=== PATIENT | female | born 1995 | race Caucasian/White ===

== ENCOUNTER 2017-09-08 13:23 | Emergency (ER) | payer OTHER ==
[2017-09-08] MEDS ORDERED: SODIUM CHLORIDE 0.9% 1,000 ML IV STA (14:49)
[2017-09-08] MEDS ORDERED: ONDANSETRON 4 MG/2 ML VIAL IVP STA (14:49)
--- NOTE | 2017-09-08 15:24 | ED ---
Nausea/Vomiting/Diarrhea HPI - General Chief complaint: Nausea/Vomiting/Diarrhea Stated complaint: vomiting/diarrhea Time Seen by Provider: 09/08/17 14:48 Source: patient, RN notes reviewed Mode of arrival: wheelchair Limitations: no limitations - History of Present Illness Initial comments: This a 22-year-old female presents emergency Department chief complaint of abdominal pain, diarrhea. Patient states that she's had abdominal cramping over the last day or so but having worsening today. She said for severe episodes of diarrhea which were all watery. She has diffuse abdominal cramping. Denies any rectal bleeding. Denies any dysuria hematuria. She states her last mental cycle 28 days ago she is scheduled started her period. Denies any concerns for . Patient reports no fever no chills no night sweats. 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 diff. She is concerned she may have contracted C. diff. Patient has been on no recent antibiotics no recent traveling. - Related Data Home Medications Medication Instructions Recorded Confirmed Biotin 5 mg PO DAILY 09/08/17 09/08/17 Previous Rx's Medication Instructions Recorded Ciprofloxacin HCl [Cipro] 500 mg PO Q12HR #10 tablet 09/08/17 Allergies Allergy/AdvReac Type Severity Reaction Status Date / Time No Known Allergies Allergy Verified 09/08/17 15:38 Review of Systems ROS Statement: Those systems with pertinent positive or pertinent negative responses have been documented in the HPI. ROS Other: All systems not noted in ROS Statement are negative. Past Medical History Past Medical History: No Reported History History of Any Multi-Drug Resistant Organisms: None Reported Past Surgical History: No Surgical Hx Reported Past Psychological History: No Psychological Hx Reported Smoking Status: Never smoker Past Alcohol Use History: None Reported Past Drug Use History: None Reported General Exam General appearance: alert, in no apparent distress Neck exam: Present: normal inspection. Absent: tenderness, meningismus, lymphadenopathy Respiratory exam: Present: normal lung sounds bilaterally. Absent: respiratory distress, wheezes, rales, rhonchi, stridor Cardiovascular Exam: Present: regular rate, normal rhythm, normal heart sounds. Absent: systolic murmur, diastolic murmur, rubs, gallop, clicks GI/Abdominal exam: Present: soft, tenderness (Mild diffuse), normal bowel sounds. Absent: distended, guarding, rebound, rigid Back exam: Absent: CVA tenderness (R), CVA tenderness (L) Course Vital Signs 09/08/17 09/08/17 13:27 17:03 Temperature 97.9 F 99.1 F Pulse Rate 68 87 Respiratory 18 16 Rate Blood Pressure 102/62 101/55 O2 Sat by Pulse 100 100 Oximetry Medical Decision Making - Medical Decision Making 22-year-old female presented for diarrhea abdominal discomfort. Patient's urinary tract infection. Patient did have some leukocytosis CT was performed she was ovarian cyst. Patient has no acute findings. Patient we given prescription for stool sampling and return for any worsening symptoms. - Lab Data Result diagrams: 09/08/17 15:24 09/08/17 15:24 Lab Results 09/08/17 09/08/17 09/08/17 Range/Units 15:24 15:24 15:37 WBC 19.8 H (3.8-10.6) k/uL RBC 4.47 (3.80-5.40) m/uL Hgb 15.2 (11.4-16.0) gm/dL Hct 43.7 (34.0-46.0) % MCV 97.7 (80.0-100.0) fL MCH 34.0 (25.0-35.0) pg MCHC 34.8 (31.0-37.0) g/dL RDW 12.7 (11.5-15.5) % Plt Count 208 (150-450) k/uL Neutrophils % 86 % Lymphocytes % 7 % Monocytes % 3 % Eosinophils % 1 % Basophils % 0 % Neutrophils # 17.1 H (1.3-7.7) k/uL Lymphocytes # 1.5 (1.0-4.8) k/uL Monocytes # 0.7 (0-1.0) k/uL Eosinophils # 0.2 (0-0.7) k/uL Basophils # 0.1 (0-0.2) k/uL Sodium 144 (137-145) mmol/L Potassium 4.4 (3.5-5.1) mmol/L Chloride 101 (98-107) mmol/L Carbon Dioxide 27 (22-30) mmol/L Anion Gap 16 mmol/L BUN 16 (7-17) mg/dL Creatinine 0.89 (0.52-1.04) mg/dL Est GFR (CKD-EPI)AfAm >90 (>60 ml/min/1.73 sqM) Est GFR (CKD-EPI)NonAf >90 (>60 ml/min/1.73 sqM) Glucose 78 (74-99) mg/dL Calcium 9.8 (8.4-10.2) mg/dL Total Bilirubin 0.9 (0.2-1.3) mg/dL AST 38 H (14-36) U/L ALT 59 H (9-52) U/L Alkaline Phosphatase 102 (38-126) U/L Total Protein 7.3 (6.3-8.2) g/dL Albumin 4.6 (3.5-5.0) g/dL Amylase 57 (30-110) U/L Lipase 69 (23-300) U/L Urine Color Urine Appearance (Clear) Urine pH (5.0-8.0) Ur Specific [place] (1.001-1.035) Urine Protein (Negative) Urine Glucose (UA) (Negative) Urine Ketones (Negative) Urine Blood (Negative) Urine Nitrite (Negative) Urine Bilirubin (Negative) Urine Urobilinogen (<2.0) mg/dL Ur Leukocyte Esterase (Negative) Urine RBC (0-5) /hpf Urine WBC (0-5) /hpf Ur Squamous Epith Cells (0-4) /hpf Amorphous Sediment (None) /hpf Urine Mucus (None) /hpf Urine HCG, Qual Not Detected (Not Detectd) 09/08/17 Range/Units 15:37 WBC (3.8-10.6) k/uL RBC (3.80-5.40) m/uL Hgb (11.4-16.0) gm/dL Hct (34.0-46.0) % MCV (80.0-100.0) fL MCH (25.0-35.0) pg MCHC (31.0-37.0) g/dL RDW (11.5-15.5) % Plt Count (150-450) k/uL Neutrophils % % Lymphocytes % % Monocytes % % Eosinophils % % Basophils % % Neutrophils # (1.3-7.7) k/uL Lymphocytes # (1.0-4.8) k/uL Monocytes # (0-1.0) k/uL Eosinophils # (0-0.7) k/uL Basophils # (0-0.2) k/uL Sodium (137-145) mmol/L Potassium (3.5-5.1) mmol/L Chloride (98-107) mmol/L Carbon Dioxide (22-30) mmol/L Anion Gap mmol/L BUN (7-17) mg/dL Creatinine (0.52-1.04) mg/dL Est GFR (CKD-EPI)AfAm (>60 ml/min/1.73 sqM) Est GFR (CKD-EPI)NonAf (>60 ml/min/1.73 sqM) Glucose (74-99) mg/dL Calcium (8.4-10.2) mg/dL Total Bilirubin (0.2-1.3) mg/dL AST (14-36) U/L ALT (9-52) U/L Alkaline Phosphatase (38-126) U/L Total Protein (6.3-8.2) g/dL Albumin (3.5-5.0) g/dL Amylase (30-110) U/L Lipase (23-300) U/L Urine Color Yellow Urine Appearance Cloudy H (Clear) Urine pH 6.5 (5.0-8.0) Ur Specific [place] 1.029 (1.001-1.035) Urine Protein 1+ H (Negative) Urine Glucose (UA) Negative (Negative) Urine Ketones 2+ H (Negative) Urine Blood Negative (Negative) Urine Nitrite Negative (Negative) Urine Bilirubin Negative (Negative) Urine Urobilinogen 2.0 (<2.0) mg/dL Ur Leukocyte Esterase Moderate H (Negative) Urine RBC 2 (0-5) /hpf Urine WBC 48 H (0-5) /hpf Ur Squamous Epith Cells 19 H (0-4) /hpf Amorphous Sediment Rare H (None) /hpf Urine Mucus Moderate H (None) /hpf Urine HCG, Qual (Not Detectd) Disposition Clinical Impression: Diarrhea, UTI (urinary tract infection) Disposition: HOME SELF-CARE Condition: Stable Instructions: Acute Diarrhea (ED), Urinary Tract Infection in Women (ED) Additional Instructions: Please return to the Emergency Department if symptoms worsen or any other concerns. Prescriptions: Ciprofloxacin HCl [Cipro] 500 mg PO Q12HR #10 tablet Is patient prescribed a controlled substance at d/c from ED?: No Referrals: Joe Velazquez MD [STAFF PHYSICIAN] - 1-2 days
[2017-09-08 15:52] LABS: Basophils # (A) 0.1 k/uL (0-0.2); Basophils % (A) 0 %; Eosinophils # (A) 0.2 k/uL (0-0.7); Eosinophils % (A) 1 %; HCT 43.7 % (34.0-46.0); HGB 15.2 gm/dL (11.4-16.0); Lymphocytes # (A) 1.5 k/uL (1.0-4.8); Lymphocytes % (A) 7 %; MCHC 34.8 g/dL (31.0-37.0); MCV 97.7 fL (80.0-100.0); Mean Platelet Volume 7.2; Monocytes # (A) 0.7 k/uL (0-1.0); Monocytes % (A) 3 %; Neutrophils # (A) 17.1 k/uL (1.3-7.7); Neutrophils % (A) 86 %; Platelet Count 208 k/uL (150-450); RBC 4.47 m/uL (3.80-5.40); RDW 12.7 % (11.5-15.5); WBC 19.8 k/uL (3.8-10.6)
[2017-09-08] MEDS ORDERED: RX INFO: IV CONTRAST WAS GIVEN 1 EACH MISC MISCELLANE PRN (15:54)
[2017-09-08 16:02] LABS: Amorphous Sediment,Urine Rare /hpf; Appearance,Urine Cloudy (Clear); Bilirubin,Urine Negative (Negative); Blood,Urine Negative (Negative); Color,Urine Yellow; Glucose,Urine (UA) Negative (Negative); Ketones,Urine 2+ (Negative); Leukocyte Esterase,Urine Moderate (Negative); Mucus,Urine Moderate /hpf; Nitrite,Urine Negative (Negative); PH, Urine 6.5 (5.0-8.0); Protein,Urine 1+ (Negative); RBC,Urine 2 /hpf (0-5); Specific Gravity,Urine 1.029 (1.001-1.035); Squamous Epithelial Cell,Urine 19 /hpf (0-4); WBC,Urine 48 /hpf (0-5)
[2017-09-08 16:09] LABS: ALT 59 U/L (9-52); AST 38 U/L (14-36); Albumin 4.6 g/dL (3.5-5.0); Alkaline Phosphatase 102 U/L (38-126); Amylase 57 U/L (30-110); Anion Gap 16 mmol/L; Blood Urea Nitrogen 16 mg/dL (7-17); Calcium 9.8 mg/dL (8.4-10.2); Carbon Dioxide 27 mmol/L (22-30); Chloride 101 mmol/L (98-107); Glucose 78 mg/dL (74-99); Lipase 69 U/L (23-300); Potassium 4.4 mmol/L (3.5-5.1); Sodium 144 mmol/L (137-145); Total Bilirubin 0.9 mg/dL (0.2-1.3); Total Protein 7.3 g/dL (6.3-8.2)
--- NOTE | 2017-09-08 16:53 | CT ---
EXAMINATION TYPE: CT abdomen pelvis w con DATE OF EXAM: 09/08/2017 COMPARISON: NONE HISTORY: Nausea, vomiting and diarrhea. CT DLP: 274.7 mGycm CONTRAST: CT scan of the abdomen and pelvis is performed without Oral Contrast and with IV Contrast, patient in jected with 100 mL of Isovue M300. FINDINGS: LUNG BASES-: No visible nodule. No infiltrate. LIVER/GB: No calcified gallstones. No space occupying hepatic lesion. Biliary tree is of normal ca liber. PANCREAS: No inflammation. No distinct mass. SPLEEN: No splenic enlargement. No lesion seen. ADRENALS: No nodule. No thickening. KIDNEYS/BLADDER: No hydronephrosis. No nephrolithiasis. No distinct renal mass. Urinary bladder g rossly unremarkable. BOWEL: Normal appendix. Normal bowel caliber. No inflammation. GENITAL ORGANS: Left ovarian cyst noted on the right measuring 3.2 cm in greatest dimension on the l eft 2.1 cm. There is free fluid identified within the cul-de-sac measuring 3.5 x 2.8 cm. Uterus appea rs unremarkable. LYMPH NODES: No greater than 1cm abdominal or pelvic lymph nodes are appreciated. AORTA: No significant abnormality. OSSEOUS STRUCTURES: No significant abnormality is seen. OTHER: No significant additional abnormality is seen. IMPRESSION: 1. Left ovarian cyst with 3 fluid within the cul-de-sac. Otherwise unremarkable study.
[2017-09-08 18:09] VITALS: BP 96/53; PULSE 91; RESP 18; TEMP 98.2
== END 2017-09-08 18:10 | disposition home or self-care (01) ==
LOC: EC 13:23
DX: N39.0 Urinary tract infection, site not specified (principal); R19.7 Diarrhea, unspecified; N83.202 Unspecified ovarian cyst, left side
CPT/HCPCS: 36415; 80053; 82150; 83690; 85025; 81001; 81025; 74177; 99284; 96374; 96361; J2405; Q9967

== ENCOUNTER 2019-02-10 12:21 | Emergency (ER) | payer OTHER ==
[2019-02-10 12:56] VITALS: BP 104/49; PULSE 78; RESP 16; TEMP 98.1
--- NOTE | 2019-02-10 13:25 | ED ---
Recheck HPI - General Chief Complaint: Recheck/Abnormal Lab/Rx Stated Complaint: IHS-stool in open wound Time Seen by Provider: 02/10/19 12:58 Source: patient, RN notes reviewed Mode of arrival: ambulatory Limitations: no limitations - History of Present Illness Initial Comments: 24-year-old female presents emergency dept for bodily fluid exposure. Patient states that she works at [employer] what is helping a patient in which she ended up getting some stool on her forearm, wrist region. She states she has a small healing wound. Patient was sent for evaluation for HIV and hepatitis testing. There is no history of the patient or the source. - Related Data Home Medications Medication Instructions Recorded Confirmed Biotin 5 mg PO DAILY 09/08/17 09/08/17 Previous Rx's Medication Instructions Recorded Ciprofloxacin HCl [Cipro] 500 mg PO Q12HR #10 tablet 09/08/17 Allergies Allergy/AdvReac Type Severity Reaction Status Date / Time No Known Allergies Allergy Verified 02/10/19 12:52 Review of Systems ROS Statement: Those systems with pertinent positive or pertinent negative responses have been documented in the HPI. ROS Other: All systems not noted in ROS Statement are negative. Past Medical History Past Medical History: No Reported History History of Any Multi-Drug Resistant Organisms: None Reported Past Surgical History: No Surgical Hx Reported Past Psychological History: No Psychological Hx Reported Smoking Status: Never smoker Past Alcohol Use History: None Reported Past Drug Use History: None Reported General Exam Limitations: no limitations General appearance: alert, in no apparent distress Head exam: Present: atraumatic, normocephalic, normal inspection Eye exam: Present: normal appearance, PERRL, EOMI. Absent: scleral icterus, conjunctival injection, periorbital swelling Respiratory exam: Present: normal lung sounds bilaterally. Absent: respiratory distress, wheezes, rales, rhonchi, stridor Cardiovascular Exam: Present: regular rate, normal rhythm, normal heart sounds. Absent: systolic murmur, diastolic murmur, rubs, gallop, clicks Course Vital Signs 02/10/19 12:52 Temperature 98.1 F Pulse Rate 78 Respiratory 16 Rate Blood Pressure 104/49 O2 Sat by Pulse 97 Oximetry Medical Decision Making - Medical Decision Making Rapid HIV and hepatitis panel were drawn on the patient and source. We did discuss prophylaxis antivirals patient declined Disposition Clinical Impression: Hx of exposure to hazardous bodily fluids Disposition: HOME SELF-CARE Condition: Stable Instructions (If sedation given, give patient instructions): Body Substance Exposure (ED) Additional Instructions: Please return to the Emergency Department if symptoms worsen or any other concerns. Is patient prescribed a controlled substance at d/c from ED?: No Referrals: None,Stated [Primary Care Provider] - 1-2 days Time of Disposition: 13:19
[2019-02-11 00:22] LABS: Hepatitis B Surface AB- Quant 3.5 mIU/mL; Hepatitis B Surface Antibody Non-Reactive (Non-Reactive); Hepatitis B Surface Antigen Non-Reactive (Non-Reactive); Hepatitis C IgG Antibody Non-Reactive (Non-Reactive)
[2019-02-11 01:39] LABS: HIV 1 AB Non-Reactive (Non-Reactive); HIV 2 AB Non-Reactive (Non-Reactive); HIV AB P24 Non-Reactive (Non-Reactive); HIV P24 AG Non-Reactive (Non-Reactive)
== END 2019-02-10 13:49 | disposition home or self-care (01) ==
LOC: EC 12:21
DX: Z77.21 Contact with and (suspected) exposure to potentially hazardous body fluids (principal); S51.809A Unspecified open wound of unspecified forearm, initial encounter; X58.XXXA Exposure to other specified factors, initial encounter; Y99.0 Civilian activity done for income or pay
CPT/HCPCS: 36415; 86706; 86803; 87340; 87390; 99283

== ENCOUNTER 2020-07-03 12:06 | Observation (INO) | payer MEDICAID, OTHER ==
--- NOTE | 2020-07-03 12:15 | ED ---
Lower Extremity Injury HPI - General Source: patient, RN notes reviewed Mode of arrival: ambulatory Limitations: no limitations <Malik Redd - Last Filed: 07/03/20 12:13> <Grzegorz Osorio - Last Filed: 07/03/20 14:17> - General Chief Complaint: Extremity Injury, Lower Stated Complaint: cellulitis-sent by [facility] Time Seen by Provider: 07/03/20 12:09 - History of Present Illness Initial Comments: 5-year-old female presents emergency Department with chief complaint of left foot infection. Patient states that she stabbed herself with a pitchfork on Wednesday. She was able to remove it was seen at [facility]. Patient states that she was placed on Augmentin. She states that the pain is improving, there is mild redness that is improving. Patient states that she was seen at [facility] for additional days off work so she did not lose her job but states that she was referred to the emergency department. Patient also does add that she recently found out she was but has no abdominal complaints. Patient did receive 1 g of Rocephin at [facility] (Malik Redd) Dictation was produced using [employer] dictation software. please excuse any grammatical, word or spelling errors. This patient was cared for during a federal and state declared state of [facility] secondary to Covid 19 Chief Complaint: 25-year-old female presents with worsening leg infection. History of Present Illness: 25-year-old female she suffered a puncture wound to the left foot. Patient accidentally punctured her left foot with a pitchfork. She states she was trying to stab the ground and instead stepped barefoot. The pitchfork went through and through her left foot. She removed the pitchfork by herself and presented to the urgent care 4 days ago. She was placed on Augmentin and was given injections of ceftriaxone. Patient is allegedly 3 weeks . She went to the urgent care again and was told to come to the emergency department for concerns of worsening cellulitis. She reports that the pain is increasing. She denies any constitutional symptoms. The ROS documented in this emergency department record has been reviewed and confirmed by me. Those systems with pertinent positive or negative responses have been documented in the HPI. All other systems are other negative and/or noncontributory. PHYSICAL EXAM: General Impression: Alert and oriented x3, not in acute distress HEENT: Normocephalic atraumatic, extra-ocular movements intact, pupils equal and reactive to light bilaterally, mucous membranes moist. Cardiovascular: Heart regular rate and rhythm Chest: Able to complete full sentences, no retractions, no tachypnea Abdomen: abdomen soft, non-tender, non-distended, no organomegaly Musculoskeletal: Pulses present and equal in all extremities, no peripheral edema Motor: no focal deficits noted Neurological: CN II-XII grossly intact, no focal motor or sensory deficits noted Skin: Intact with no visualized rashes Psych: Normal affect and mood Left foot: 1 cm puncture wound to the top of the mid foot and another puncture wound measuring 1 cm to the bottom of the foot ED course: 25-year-old female with who suffered a puncture wound to the left foot 4 days ago presents to the emergency department with worsening erythema and pain to the left foot. She is allegedly 3 weeks . Vital signs upon arrival are within acceptable limits. X-ray shows no acute processes. There is some concern that patient is suffering from pseudomonal wound infection given that she failed outpatient treatment and suffer puncture wound to the foot while wearing a shoe. Case is discussed with infectious disease who requests the patient be started on cefepime. There are no good oral options. Patient is agreeable with inpatient admission. Patient will be admitted to [facility]. Case discussed with Dr. Jalloh. Infectious disease will be on consult. (Grzegorz Osorio) - Related Data Home Medications Medication Instructions Recorded Confirmed Biotin 5 mg PO DAILY 09/08/17 09/08/17 Previous Rx's Medication Instructions Recorded Ciprofloxacin HCl [Cipro] 500 mg PO Q12HR #10 tablet 09/08/17 Ibuprofen [Motrin] 600 mg PO Q8HR PRN #20 tab 12/22/19 predniSONE 50 mg PO DAILY #5 tab 12/22/19 Allergies Allergy/AdvReac Type Severity Reaction Status Date / Time No Known Allergies Allergy Verified 07/03/20 12:13 Review of Systems ROS Other: All systems not noted in ROS Statement are negative. <Malik Redd - Last Filed: 07/03/20 12:13> ROS Other: All systems not noted in ROS Statement are negative. <Grzegorz Osorio - Last Filed: 07/03/20 14:17> ROS Statement: Those systems with pertinent positive or pertinent negative responses have been documented in the HPI. Past Medical History Past Medical History: No Reported History History of Any Multi-Drug Resistant Organisms: None Reported Past Surgical History: No Surgical Hx Reported Past Psychological History: No Psychological Hx Reported Smoking Status: Vaper Past Alcohol Use History: None Reported Past Drug Use History: None Reported <Malik Redd - Last Filed: 07/03/20 12:13> General Exam Limitations: no limitations <Malik Redd - Last Filed: 07/03/20 12:13> Course Vital Signs 07/03/20 12:08 Temperature 98.1 F Pulse Rate 98 Respiratory 20 Rate Blood Pressure 112/57 O2 Sat by Pulse 99 Oximetry Disposition <Malik Redd - Last Filed: 07/03/20 12:13> Decision Time: 14:17 <Grzegorz Osorio - Last Filed: 07/03/20 14:17> Clinical Impression: Cellulitis Disposition: ADMITTED IP TO THIS HOSP Condition: Fair Referrals: None,Stated [Primary Care Provider] - 1-2 days
[2020-07-03] MEDS ORDERED: CEFEPIME 2 GM in SODIUM CHLORIDE 0.9% 100 ML IVPB STA (14:03)
[2020-07-03] MEDS ORDERED: NALOXONE 0.4 MG/ML 1 ML VIAL IV PRN (14:14)
[2020-07-03] MEDS ORDERED: ACETAMINOPHEN TAB 325 MG TAB PO PRN (14:14)
[2020-07-03] MEDS ORDERED: SODIUM CHLORIDE 0.9% 1,000 ML IV SCH (14:15)
[2020-07-03] MEDS ORDERED: PRENATAL VIT-IRON-FOLIC ACID 1 EACH CAP PO STA (14:16)
--- NOTE | 2020-07-03 14:42 | XR ---
EXAMINATION TYPE: XR foot complete LT DATE OF EXAM: 07/03/2020 COMPARISON: None HISTORY: Puncture wound to the foot TECHNIQUE: 3 view left foot FINDINGS: No acute fractures or dislocations are evident. No radiopaque foreign bodies are evident. S oft tissues appear normal. Follow up exams can be performed 7-10 days from acute trauma for continued pain. IMPRESSION: 1. Normal three-view left foot
[2020-07-03 14:51] LABS: Basophils % (A) 0 %; Eosinophils # (A) 0.5 k/uL (0-0.7); Eosinophils % (A) 6 %; HCT 37.5 % (34.0-46.0); HGB 13.1 gm/dL (11.4-16.0); Lymphocytes # (A) 2.3 k/uL (1.0-4.8); Lymphocytes % (A) 26 %; MCH 35.1 pg (25.0-35.0); MCHC 34.8 g/dL (31.0-37.0); MCV 100.9 fL (80.0-100.0); Mean Platelet Volume 7.5; Monocytes # (A) 0.7 k/uL (0-1.0); Monocytes % (A) 8 %; Neutrophils # (A) 5.2 k/uL (1.3-7.7); Neutrophils % (A) 58 %; Platelet Count 176 k/uL (150-450); RBC 3.72 m/uL (3.80-5.40); RDW 11.7 % (11.5-15.5); WBC 8.9 k/uL (3.8-10.6)
[2020-07-03 15:02] LABS: African American GFR (CKD) >90 (>60 ml/min/1.73 sqM); Anion Gap 7 mmol/L; Blood Urea Nitrogen 19 mg/dL (7-17); Carbon Dioxide 25 mmol/L (22-30); Chloride 105 mmol/L (98-107); Glucose 83 mg/dL (74-99); Non-African American GFR(CKD) >90 (>60 ml/min/1.73 sqM); Potassium 4.3 mmol/L (3.5-5.1); Sodium 137 mmol/L (137-145)
[2020-07-03 15:03] VITALS: BP 107/59; PULSE 87; RESP 18; TEMP 98.2
--- NOTE | 2020-07-03 15:51 | ED ---
Medical Decision Making - Lab Data Result diagrams: 07/03/20 14:38 07/03/20 14:38 Disposition Clinical Impression: Cellulitis, Puncture wound of foot Narrative: Discussed with patient to follow up with infectious disease on outpatient basis. She understands that she should return to the emergency department especially worsening symptoms including fever, chills night sweats or worsening redness pain on that foot. Disposition: HOME SELF-CARE Condition: Fair Is patient prescribed a controlled substance at d/c from ED?: No Time of Disposition: 15:50
--- NOTE | 2020-07-03 16:07 | P.CONS ---
History of Present Illness - Reason for Consult Consult date: 07/03/20 Requesting physician: Grzegorz Osorio - Chief Complaint left foot swelling - History of Present Illness 25 year old woman with no significant medical history presented for left foot swelling. She was seen recently by PCP after accidental traumatic penetrating injury to left foot from pitchfork. She was started on augmentin and had two doses, and started to improve. However, she went to urgent care to obtain an extension of a work release, and the urgent care provider referred her to the ER due to concern for ongoing infection on oral abx. She was seen in co nsultation with ID, who recommended discharge with outpatient follow up consider her clinical improvement. ROS is negative for CP, fevers, chills, n/v/c/d, abd pain, dysuria, dyschezia, sweats, numbness/weakness of extremities. Review of Systems All Systems reviewed and pertinent positives and negatives noted in HPI, all other symptoms are negative Past Medical History Past Medical History: No Reported History History of Any Multi-Drug Resistant Organisms: None Reported Past Surgical History: No Surgical Hx Reported Past Psychological History: No Psychological Hx Reported Smoking Status: Vaper Past Alcohol Use History: None Reported Past Drug Use History: None Reported Medications and Allergies Home Medications Medication Instructions Recorded Confirmed Type Amoxic-Pot Clav 875-125Mg 1 tab PO BID 07/03/20 07/03/20 History [Augmentin 875-125] Allergies Allergy/AdvReac Type Severity Reaction Status Date / Time No Known Allergies Allergy Verified 07/03/20 14:21 Physical Exam Osteopathic Statement: *. No significant issues noted on an osteopathic structural exam other than those noted in the History and Physical/Consult. Vitals: Vital Signs Temp Pulse Resp BP Pulse Ox 07/03/20 15:00 98.2 F 87 18 107/59 99 07/03/20 12:08 98.1 F 98 20 112/57 99 Intake and Output 07/03/20 07/03/20 07/03/20 06:59 14:59 22:59 Other: Weight 58.967 kg Gen: awake, alert HEENT: normocephalic, atraumatic, good hearing acuity, moist mucous membranes Resp: good air exchange, breathing comfortably with no accessory muscle use CVS: good distal perfusion x 4, GI: soft, NTTP, ND : no SPT, no CVAT, her catheter not present MSK: non-pitting edema of left foot with puncture wound noted between second and third metatarsal with surrounding erythema, no clubbing Neuro: non-focal, moving all extremities Psych: cooperative, euthymic mood Results CBC & Chem 7: 07/03/20 14:38 07/03/20 14:38 Labs: Abnormal Lab Results - Last 24 Hours (Table) 07/03/20 07/03/20 Range/Units 14:38 14:38 RBC 3.72 L (3.80-5.40) m/uL MCV 100.9 H (80.0-100.0) fL MCH 35.1 H (25.0-35.0) pg BUN 19 H (7-17) mg/dL Assessment and Plan Assessment: Left foot cellulitis Puncture wound -Continue Augmentin on discharge -Recommend 1 more week of work release -Follow up with primary care physician -Follow up with infectious disease -Return to the emergency room should swelling, erythema increase or patient develops fevers, chills, sweats, or any other concerning signs or symptoms of infection; patient was counseled on the symptoms on discharge.
--- NOTE | 2020-07-03 17:21 | CONS ---
CONSULTATION DATE OF SERVICE: 07/03/2020 REASON FOR CONSULTATION: Left foot cellulitis. HISTORY OF PRESENT ILLNESS: The patient is a 25-year-old female, otherwise healthy, who did have an injury to her left foot when she was working in the yard with a pitchfork. It went through and through her left foot. The patient was feeling some at that point. The patient is able to remove the object from her left foot. There was mild bleeding. The patient went to [facility], where the patient was seen. She was started on oral Augmentin 875 mg twice a day. However, the patient did not take her medication as prescribed; has taken only 2 pills. 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 The patient was seen at Urgent Care and subsequently referred to [facility] for further evaluation and treatment. The patient denies having any fever or any chills. The patient denies having any chest pain, shortness of breath or cough. No abdominal pain. The patient did have some left foot swelling. The puncture wound has scabbed off. There is no drainage. The patient did have mild dull aching pain; however, she denies any worsening pain, swelling, redness or any drainage. The patient was been evaluated by the ER physician. The patient on presentation to the hospital did not have any fever. The patient did have a normal white count with no left shift. Creatinine was 0.68. Rutledge PCR was negative. The patient did have x-rays of the foot which did not show any abnormality; no acute fracture or dislocation; no foreign body. Soft tissue appeared normal, as per information provided to me by the ER physician. Initial impression was for admission to hospital for IV antibiotic therapy, failing outpatient. However, the patient has not taken enough antibiotics to consider failure of outpatient oral antibiotic therapy, and the patient is begging to go home. She does not want to be admitted. REVIEW OF SYSTEMS: Positive points have been mentioned in HPI. Rest of the systems are negative. PAST MEDICAL HISTORY: No major illnesses. PAST SURGICAL HISTORY: No surgeries. SOCIAL HISTORY: The patient did admit to vape smoking. No drinking or drug use. FAMILY HISTORY: No pertinent findings noticed. ALLERGIES: NO KNOWN DRUG ALLERGIES. MEDICATIONS: The patient is currently on Tylenol. She received a dose of cefepime 2 grams x1, Narcan, capsule and IV fluid. PHYSICAL EXAMINATION: Blood pressure 107/59 with a pulse of 87, temperature 98.2. She is 99% on room air. General description is a middle-aged female lying in bed in no distress. HEENT: Examination shows no pallor or scleral icterus. Oral mucous membrane is dry. NECK: Trachea is central. No thyromegaly. LUNGS: Unlabored breathing. Clear to auscultation anteriorly. HEART: S1, S2. Regular rate and rhythm. ABDOMEN: Soft. No tenderness. Left foot with minimal swelling. Slight redness. Tender to touch. No fluctuation or drainage was noted. Neurologically the patient is awake, alert, oriented x3. Mood and affect normal. LABS: Hemoglobin 13.1, white count 8.9. No left shift. BUN of 19, creatinine 0.68. X-ray did not show any acute abnormality. DIAGNOSTIC IMPRESSION AND PLAN: Patient with left foot cellulitis from a traumatic wound while she was working in the yard. She was able to remove the traumatic object. The patient was prescribed Augmentin. Unfortunately the patient did not take the medication as it was prescribed to her, and over the last 4 days she has taken only 2 doses. Patient currently with no fever; did not have elevated white count. X-ray did not show any abnormality. The patient is really insisting on going home. PLAN: 1. The patient has been advised to take her Augmentin 875 mg b.i.d. for another week. 2. Patient has been advised if any worsening of swelling or redness to let me know right away. Case was discussed with the ER physician. She is going to go home instead of getting admitted to hospital for IV antibiotic. MMODL / IJN: [id number] /
== END 2020-07-03 16:25 | disposition home or self-care (01) ==
LOC: EC 12:06 → 6PED 14:14
PROVIDERS: ADMIT Internal Medicine; ATTEND Internal Medicine
DX: L03.116 Cellulitis of left lower limb (principal); S91.332A Puncture wound without foreign body, left foot, initial encounter; T36.0X6A Underdosing of penicillins, initial encounter; T36.1X6A Underdosing of cephalosporins and other beta-lactam antibiotics, initial encounter; Z91.14 Patient's other noncompliance with medication regimen; Y92.096 Garden or yard of other non-institutional residence as the place of occurrence of the external cause; W27.1XXA Contact with garden tool, initial encounter; F17.290 Nicotine dependence, other tobacco product, uncomplicated; Z20.822 Contact with and (suspected) exposure to COVID-19
CPT/HCPCS: 36415; 80048; 83605; 85025; 87040; 87070; 87205; 87075; 87635; 73630; G0378; J0692; S0197; 96365; 99284

== ENCOUNTER → 2020-08-22 | Outpatient (CLI) | payer MEDICAID ==
[2020-08-22 19:00] LABS: Basophils # (A) 0.05 X 10*3/uL (0.00-0.10); Basophils % (A) 0.4 %; Eosinophils % (A) 2.9 %; HCT 38.8 % (37.2-46.3); HGB 13.3 g/dL (12.0-15.0); Lymphocytes # (A) 3.22 X 10*3/uL (0.90-5.00); Lymphocytes % (A) 23.3 %; MCH 34.3 pg (27.0-32.0); MCHC 34.3 g/dL (32.0-37.0); Mean Platelet Volume 10.6 fL (9.5-12.2); Monocytes # (A) 1.02 X 10*3/uL (0.20-1.00); Monocytes % (A) 7.4 %; Neutrophils # (A) 9.05 X 10*3/uL (1.80-7.70); Neutrophils % (A) 65.4 %; Platelet Count 212 X 10*3/uL (140-440); RBC 3.88 X 10*6/uL (4.10-5.20); RDW 12.8 % (11.5-14.5); WBC 13.82 X 10*3/uL (4.50-10.00)
[2020-08-22 20:27] LABS: HIV 2 AB Non-Reactive (Non-Reactive); HIV AB P24 Non-Reactive (Non-Reactive); HIV P24 AG Non-Reactive (Non-Reactive)
[2020-08-22 21:04] LABS: T4, Free (Free Thyroxine) 1.1 ng/dL (0.80-1.80)
[2020-08-23 16:05] LABS: Hepatitis B Surface Antigen Non-Reactive (Non-Reactive)
== END | disposition home or self-care (01) ==
LOC: LABWHC1 11:18
PROVIDERS: ATTEND Obstetrics & Gynecology Obstetrics
DX: Z34.81 Encounter for supervision of other normal pregnancy, first trimester (principal); Z3A.00 Weeks of gestation of pregnancy not specified
CPT/HCPCS: 36415; 84439; 84443; 85025; 86762; 86780; 86850; 86900; 86901; 87086; 87340; 87390

== ENCOUNTER → 2020-12-13 | Outpatient (CLI) | payer MEDICAID ==
[2020-12-13 18:50] LABS: HCT 30.1 % (37.2-46.3); HGB 9.8 g/dL (12.0-15.0); MCH 33.6 pg (27.0-32.0); MCHC 32.6 g/dL (32.0-37.0); MCV 103.1 fL (80.0-97.0); Mean Platelet Volume 10.7 fL (9.5-12.2); Platelet Count 166 X 10*3/uL (140-440); RBC 2.92 X 10*6/uL (4.10-5.20); RDW 11.9 % (11.5-14.5); WBC 8.27 X 10*3/uL (4.50-10.00)
== END | disposition home or self-care (01) ==
LOC: LABWHC1 10:39
PROVIDERS: ATTEND Obstetrics & Gynecology Obstetrics
DX: Z36.9 Encounter for antenatal screening, unspecified (principal); Z3A.00 Weeks of gestation of pregnancy not specified
CPT/HCPCS: 36415; 82950; 85027

== ENCOUNTER 2021-03-01 17:42 | Inpatient (IN) | payer OTHER ==
[2021-03-01] MEDS ORDERED: METHYLERGONOVINE 0.2 MG/ML 1 ML AMP IM PRN (18:36)
[2021-03-01] MEDS ORDERED: OXYTOCIN 10 UNIT/ML 1 ML VIAL IM PRN (18:36)
[2021-03-01] MEDS ORDERED: TERBUTALINE 1 MG/ML VIAL SQ PRN (18:36)
[2021-03-01] MEDS ORDERED: CARBOPROST TROMETHAMINE 250 MCG/ML 1 ML AMP IM PRN (18:36)
[2021-03-01] MEDS ORDERED: AMPICILLIN 2,000 MG in SODIUM CHLORIDE 0.9% 100 ML IVPB STA (18:36)
[2021-03-01] MEDS ORDERED: LIDOCAINE 0.5% (PF) 5 MG/ML (50 ML SDV) SQ PRN (18:36)
[2021-03-01] MEDS ORDERED: LACTATED RINGERS 1,000 ML IV SCH (18:45)
[2021-03-01 19:11] LABS: Basophils % (A) 0 %; Eosinophils # (A) 0.2 k/uL (0-0.7); Eosinophils % (A) 1 %; HCT 36.2 % (34.0-46.0); Lymphocytes # (A) 3.2 k/uL (1.0-4.8); Lymphocytes % (A) 27 %; MCHC 33.2 g/dL (31.0-37.0); MCV 99.5 fL (80.0-100.0); Macrocytosis Slight; Mean Platelet Volume 8.3; Monocytes # (A) 0.6 k/uL (0-1.0); Monocytes % (A) 5 %; Neutrophils # (A) 7.4 k/uL (1.3-7.7); Neutrophils % (A) 64 %; Platelet Count 176 k/uL (150-450); RBC 3.63 m/uL (3.80-5.40); RDW 14.3 % (11.5-15.5); WBC 11.7 k/uL (3.8-10.6)
[2021-03-01] MEDS ORDERED: SODIUM CHLORIDE 0.9% 100 ML BAG ONE (19:15)
[2021-03-01] MEDS ORDERED: ROPIVACAINE 5MG/ML 20ML VIAL ONE (19:15)
[2021-03-01] MEDS ORDERED: fentaNYL (PF) 50 MCG/ML 5 ML AMP ONE (19:15)
[2021-03-01] MEDS ORDERED: ROPIVACAINE 100 MG, fentaNYL (PF). 200 MCG in SODIUM CHLORIDE 0.9% 76 ML EPIDURAL ONE (19:29)
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
--- NOTE | 2021-03-01 21:37 | P.PROBDLV ---
Vaginal Delivery Note - . Vaginal Delivery Note: 26-year-old presents at 39 weeks and 5 days in active labor. Her cervix was 3 cm dilated, 70% effaced, and -2 station. She is brian every 3 minutes. At her water broke in triage at 1821. heart tones 135 with moderate variability and reactive. She got an epidural for pain control and started ampicillin for GBS prophylaxis. Her cervix was completely dilated at 2117. She pushed, delivered a viable female over intact perineum under epidural anesthesia at 2119. Head delivered OA, anterior shoulder delivered gentle downward guidance for by posterior shoulder and rest of body. Nose and mouth bulb suctioned, cord clamped and cut, placed on mother's abdomen. Apgars 9, 9, weight 7 lbs. 13 oz. Placenta delivered spontaneously, intact with three-vessel cord at 2122. Vagina, cervix, and perineum were inspected. Right labial laceration was repaired with 3-0 Vicryl. Estimated blood loss 200 mL. Mother and baby in stable condition.
[2021-03-01] MEDS ORDERED: diphenhydrAMINE 50 MG CAP PO PRN (21:38)
[2021-03-01] MEDS ORDERED: diphenhydrAMINE 50 MG/ML 1 ML VIAL IVP PRN ×2 (21:38)
[2021-03-01] MEDS ORDERED: SIMETHICONE 80 MG CHEWABLE PO PRN (21:38)
[2021-03-01] MEDS ORDERED: ZOLPIDEM 5 MG TAB PO PRN (21:38)
[2021-03-01] MEDS ORDERED: LANOLIN CREAM 5 GM TUBE TOPICAL PRN (21:38)
[2021-03-01] MEDS ORDERED: ACETAMINOPHEN TAB 325 MG TAB PO PRN (21:38)
[2021-03-01] MEDS ORDERED: HYDROCORTISONE 2.5% RECTAL CREAM 30 GM TUBE RECTAL PRN (21:38)
[2021-03-01] MEDS ORDERED: IBUPROFEN 600 MG TAB PO PRN (21:38)
[2021-03-01] MEDS ORDERED: diphenhydrAMINE 25 MG CAP PO PRN (21:38)
[2021-03-01] MEDS ORDERED: BENZOCAINE/MENTHOL SPRAY 1 GM/SPRAY AEROSOL TOPICAL PRN (21:38)
[2021-03-01] MEDS ORDERED: OXYTOCIN 30 UNITS/500 ML NS 30 UNIT in SALINE 1 500ML.BAG IV SCH (21:45)
[2021-03-01] MEDS ORDERED: AMPICILLIN 1,000 MG in SODIUM CHLORIDE 0.9% 50 ML IVPB SCH (22:45)
[2021-03-02 04:49] LABS: Basophils % (A) 0 %; Eosinophils # (A) 0.1 k/uL (0-0.7); Eosinophils % (A) 1 %; HCT 31.5 % (34.0-46.0); HGB 10.6 gm/dL (11.4-16.0); Lymphocytes # (A) 2.4 k/uL (1.0-4.8); Lymphocytes % (A) 18 %; MCH 33.5 pg (25.0-35.0); MCHC 33.5 g/dL (31.0-37.0); MCV 99.9 fL (80.0-100.0); Macrocytosis Slight; Mean Platelet Volume 8.6; Monocytes # (A) 0.8 k/uL (0-1.0); Monocytes % (A) 6 %; Neutrophils # (A) 10.2 k/uL (1.3-7.7); Neutrophils % (A) 74 %; Platelet Count 149 k/uL (150-450); RBC 3.16 m/uL (3.80-5.40); RDW 14.4 % (11.5-15.5); WBC 13.8 k/uL (3.8-10.6)
[2021-03-02] MEDS: SENNOSIDES-DOCUSATE SODIUM 1 EACH TAB PO SCH (09:45)
[2021-03-02] MEDS: SERTRALINE 50 MG TAB PO SCH (10:31)
--- NOTE | 2021-03-02 10:44 | P.PNOBGVD ---
Subjective - Subjective Principal diagnosis: Status post total vaginal delivery day #1 Interval history: Sincerely and examined. Denies nausea, vomiting, chest pain, shortness of breath or any calf pain. Patient reports: Reports appetite normal, Reports voiding normally, Reports pain well controlled, Reports ambulating normally Bison: doing well Objective - Latest Vital Signs Latest vital signs: Vital Signs Temp Pulse Resp BP Pulse Ox 03/02/21 08:00 98.0 F 87 16 113/69 100 03/02/21 04:00 98.2 F 64 16 109/65 100 03/02/21 00:00 16 03/01/21 23:35 98.2 F 78 16 118/57 99 03/01/21 23:05 97.9 F 69 18 126/58 99 03/01/21 22:35 97.7 F 95 17 123/71 97 03/01/21 22:20 98.0 F 83 16 121/66 98 03/01/21 22:05 98.0 F 87 17 115/68 99 03/01/21 21:50 98.0 F 94 16 120/59 98 03/01/21 21:35 98.0 F 105 H 17 127/75 98 03/01/21 18:00 97.6 F 77 18 115/62 Intake and Output 03/01/21 03/02/21 03/02/21 22:59 06:59 14:59 Other: # Voids 1 1 Weight 80.739 kg - Exam Lungs: bilateral: normal Chest: Normal S1, Normal S2 Extremities: Present: normal Abdomen: Present: normal appearance, soft Uterus: Present: normal, firm - Labs Labs: Abnormal Lab Results - Last 24 Hours (Table) 03/01/21 03/02/21 Range/Units 18:41 03:47 WBC 11.7 H 13.8 H (3.8-10.6) k/uL RBC 3.63 L 3.16 L (3.80-5.40) m/uL Hgb 10.6 L (11.4-16.0) gm/dL Hct 31.5 L (34.0-46.0) % Plt Count 149 L (150-450) k/uL Neutrophils # 10.2 H (1.3-7.7) k/uL Assessment and Plan (1) Active labor Current Visit: Yes Status: Resolved Code(s): [id number] - SNOMED Code(s): 239941903 (2) Normal vaginal delivery Current Visit: Yes Status: Acute Code(s): O80 - ENCOUNTER FOR FULL-TERM UNCOMPLICATED DELIVERY SNOMED Code(s): 42397854 Plan: 1. Continue care
[2021-03-03 08:13] VITALS: RESP 16
[2021-03-03] MEDS: SENNOSIDES-DOCUSATE SODIUM 1 EACH TAB PO SCH (08:21)
[2021-03-03] MEDS: SERTRALINE 50 MG TAB PO SCH (09:30)
--- NOTE | 2021-03-03 10:00 | P.DS ---
Providers Date of admission: 03/01/21 18:34 Expected date of discharge: 03/03/21 Attending physician: Juventino Quintanilla Primary care physician: Stated None Hospital Course: Jeri is doing very well day 2. She is ambulating, voiding and tolerating her diet. She voices no complaints and requests discharged home today. Vital signs are stable and afebrile. Heart regular, lungs clear, extremities are without pain. Abdomen soft and uterus is firm. Lochia is reported light. Assessment day 2. Plan discharged home follow up with me in 6 weeks. Discharge instructions otherwise fully reviewed all questions are answered for her and she is stable for discharge this time. Patient Condition at Discharge: Good Plan - Discharge Summary New Discharge Prescriptions: No Action Sertraline [Zoloft] 50 mg PO DAILY Discharge Medication List Sertraline [Zoloft] 50 mg PO DAILY 03/01/21 [History] Follow up Appointment(s)/Referral(s): Juventino Quintanilla DO [Doctor of Osteopathic Medicine] - 1 Week Activity/Diet/Wound Care/Special Instructions: Heavy lifting, limit stairs and driving, and pelvic rest. If any high temperatures, heavy bleeding, or severe pain call my office Discharge Disposition: HOME SELF-CARE
[2021-03-03 16:05] VITALS: BP 126/71; PULSE 86; TEMP 98.6
== END 2021-03-03 17:30 | disposition home or self-care (01) | DRG 807 ==
LOC: FBPOP 17:42 → 4FBP 18:34
PROVIDERS: ADMIT Obstetrics & Gynecology; ATTEND Obstetrics & Gynecology
PROC: 10E0XZZ Delivery of Products of Conception, External Approach (ICD-10-PCS; principal; 2021-03-01)
PROC: 0HQ9XZZ Repair Perineum Skin, External Approach (ICD-10-PCS; 2021-03-01)
DX: O99.344 Other mental disorders complicating childbirth (principal); Z37.0 Single live birth; F32.A Depression, unspecified; F41.9 Anxiety disorder, unspecified; O70.0 First degree perineal laceration during delivery; Z3A.39 39 weeks gestation of pregnancy; Z79.899 Other long term (current) drug therapy
CPT/HCPCS: 59025; 84112; 85025; 86850; 86900; 86901; 99213

== ENCOUNTER 2024-08-24 12:27 | Inpatient (IN) | payer MEDICAID, OTHER ==
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
[2024-08-24] MEDS: ONDANSETRON ODT 4 MG TAB PO STA (12:57)
[2024-08-24 13:40] LABS: Amphetamine Screen,Urine Detected (NotDetected); Barbiturate Screen,Urine Not Detected (NotDetected); Benzodiazepines Screen,Urine Not Detected (NotDetected); Cocaine Screen,Urine Not Detected (NotDetected); Methadone Screen, Urine Not Detected (NotDetected); Opiate Screen,Urine Not Detected (NotDetected); Oxycodone Screen, Urine Not Detected (NotDetected); Phencyclidine Screen,Urine Not Detected (NotDetected); Tricyclic Antidepressant,Urine Detected (NotDetected); Urn Cannabinoid Scrn Detected (NotDetected)
[2024-08-24] MEDS ORDERED: IBUPROFEN 600 MG TAB PO PRN (16:25)
[2024-08-24] MEDS ORDERED: MAG HYDROX/AL HYDROX/SIMETH 355 ML BOTTLE PO PRN (16:25)
[2024-08-24] MEDS ORDERED: HALOPERIDOL LACTATE 5 MG/ML 1 ML VIAL IM PRN (16:25)
[2024-08-24] MEDS ORDERED: MAGNESIUM HYDROXIDE 2,400 MG/30 ML CUP PO PRN (16:25)
[2024-08-24] MEDS ORDERED: LORazepam 2 MG/ML INJ IM PRN (16:25)
[2024-08-24] MEDS ORDERED: ACETAMINOPHEN TAB 325 MG TAB PO PRN (16:25)
[2024-08-24] MEDS: NICOTINE 14MG/24HR PATCH TRANSDERM SCH (17:26)
[2024-08-24] MEDS: LORazepam 1 MG TAB PO PRN (17:27)
[2024-08-24] MEDS: QUEtiapine 100 MG TAB PO SCH (21:04)
[2024-08-25] MEDS: THIAMINE 100 MG TAB PO SCH (07:43)
[2024-08-25] MEDS: MULTIVITAMINS, THERA 1 EACH TAB PO SCH (07:43)
[2024-08-25] MEDS: lamoTRIgine 100 MG TAB PO SCH (07:43)
[2024-08-25] MEDS: FOLIC ACID 1 MG TAB PO SCH (07:43)
[2024-08-25] MEDS: LORazepam 1 MG TAB PO PRN ×2 (07:44→20:27)
[2024-08-25 08:09] LABS: Basophils # (A) 0.04 10*3/uL (0.00-0.10); Basophils % (A) 0.5 %; Eosinophils # (A) 0.16 10*3/uL (0.04-0.35); Eosinophils % (A) 2.1 %; HCT 41.3 % (37.2-46.3); HGB 13.7 g/dL (12.0-15.0); Lymphocytes # (A) 2.95 10*3/uL (0.90-5.00); Lymphocytes % (A) 38.9 %; MCH 31.3 pg (27.0-32.0); MCHC 33.2 g/dL (32.0-37.0); MCV 94.3 fL (80.0-97.0); Mean Platelet Volume 9.9 fL (9.5-12.2); Monocytes # (A) 0.72 10*3/uL (0.20-1.00); Monocytes % (A) 9.5 %; Neutrophils # (A) 3.71 10*3/uL (1.80-7.70); Neutrophils % (A) 48.9 %; Platelet Count 235 10*3/uL (140-440); RBC 4.38 10*6/uL (4.10-5.20); RDW 14.6 % (11.5-14.5); WBC 7.59 10*3/uL (4.50-10.00)
[2024-08-25 08:34] LABS: ALT 10 U/L (4-34); AST 31 U/L (14-36); African American GFR (CKD) >90 (>60 ml/min/1.73 sqM); Alkaline Phosphatase 86 U/L (38-126); Anion Gap 12 mmol/L; Blood Urea Nitrogen 18 mg/dL (7-17); Calcium 10.2 mg/dL (8.4-10.2); Carbon Dioxide 25 mmol/L (22-30); Chloride 101 mmol/L (98-107); Glucose 89 mg/dL (74-99); Non-African American GFR(CKD) 83 (>60 ml/min/1.73 sqM); Potassium 4.2 mmol/L (3.5-5.1); Sodium 138 mmol/L (137-145); Total Bilirubin 1.1 mg/dL (0.2-1.3); Total Protein 8.2 g/dL (6.3-8.2)
[2024-08-25 11:34] VITALS: BMI 17.2
[2024-08-25] MEDS ORDERED: lamoTRIgine 25 MG TAB PO SCH (11:56)
[2024-08-25] MEDS: NALTREXONE HCL 50 MG TAB PO SCH (12:05)
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
[2024-08-25 15:21] LABS: Amorphous Sediment,Urine Few /hpf; Appearance,Urine Turbid (Clear); Bilirubin,Urine Negative (Negative); Blood,Urine Negative (Negative); Color,Urine Light Yellow; Glucose,Urine (UA) Negative (Negative); Hyaline Casts,Urine 4 /lpf (0-2); Ketones,Urine Negative (Negative); Leukocyte Esterase,Urine Moderate (Negative); Mucus,Urine Few /hpf; Nitrite,Urine Negative (Negative); Protein,Urine Negative (Negative); RBC,Urine 2 /hpf (0-5); Specific Gravity,Urine 1.017 (1.001-1.035); Squamous Epithelial Cell,Urine 8 /hpf (0-4); Urobilinogen,Urine <2.0 mg/dL (<2.0); WBC,Urine 4 /hpf (0-5)
[2024-08-25 15:30] LABS: Chol/HDL Ratio 1.64 Ratio; LDL Cholesterol,Calculated 32.2 mg/dL (0.0-131.0)
--- NOTE | 2024-08-26 14:02 | P.PN ---
Progress Note - Text Progress Note Date: 08/26/24 Interval History: Patient was seen today for psychiatric follow up. she was in the hallways soci alizing with others. claims that her anxiety is still present and her mood is mildly improving. she had a soft hemorrhoid today, that was bleeding with regular time for discharge. She claims that her withdrawal symptoms have been improving she was less tremulous today. Claims that she does not want to be on Ativan long-term. We explained about the Librium taper and Ativan taper. She claims that she is upset with herself Librium which she did, claims that she asked her boyfriend to remove all the alcohol, does not want to do any. She claims that she slept about 8 or 9 hours last night, has been eating well going to some groups. Somewhat superficial with senior writer. Denying any auditory or visual hallucinations denying any suicidal or homicidal ideations intent or plan. MENTAL STATUS EXAM: General Appearance: Patient appears to be tall, thin, short hair, wearing glasses, facial piercings, stated age is alert, attempts to cooperate. Patient appears to have fair hygiene and grooming. Behavior: Patient is seated without any agitated behavior. Focused on discharge, minimizing, improving mildly Speech: Patient's speech is fluent and nonpressured. Soft tone of voice Mood/Affect: Patient reports their mood is improving mildly, affect is congruent and constricted. Suicidality/Homicidality: Patient denies having any homicidal ideation intent or plan. Denies any suicidal ideations intent or plan Perceptions: Patient denies any visual hallucinations and denies any auditory hallucinations Though content/process: There is no evidence of any delusional thought content and thought process is linear and goal-directed. Focused on discharge, minimizing, improving mildly, improving mildly Memory and concentration: AOX3, grossly intact for the purposes of this session Judgment and insight: Poor/impulsive IMPRESSIONS: Depressive disorder unspecified Borderline personality disorder History of PTSD Cannabis use disorder Alcohol abuse Nicotine dependence PLAN: -Patient is admitted under voluntary status to MHU for stabilization of psychiatric symptoms and safety. Patient has signed adult voluntary form and has signed medication consent and is placed in patient's chart. -Medications : Seroquel 100 mg nightly for mood stabilization/insomnia, Lamictal 200 mg daily for mood stabilization/depression. Naltrexone 50 mg p.o. daily for alcohol cravings, Librium taper for alcohol withdrawal -Ativan and Haldol PRN for agitation/aggression. Vistaril as needed for anxiety. -thiamine, MVM for etoh use -CIWA protocol with Ativan PRN for ETOH withdrawal. -NRT -nicotine patch -SW on board for discharge planning. Encourage patient to participate in groups to work on coping skills. hopeful for discharge wednesday if patient is improving. will offer rehab
--- NOTE | 2024-08-27 13:59 | P.PN ---
Progress Note - Text Progress Note Date: 08/27/24 Interval History: Patient was seen today for psychiatric follow up. she was in the hallways, she was agreeable to speak to justowriter operator today. S claims that she is doing a bit better today, had poor eye contact during interaction with justowriter operator. She did appear to be crying at times, was minimizing her need for continued hospitalization and was fairly focused on discharge. She continues have fairly superficial insight and judgment. Has been trying to go to groups visible on the unit speaking with others. She claims that she slept about 8 or 9 hours last night, has been eating well going to some groups. Somewhat superficial with justowriter operator. Denying any auditory or visual hallucinations denying any suicidal or homicidal ideations intent or plan. MENTAL STATUS EXAM: General Appearance: Patient appears to be tall, thin, short hair, wearing glasses, facial piercings, stated age is alert, attempts to cooperate. Patient appears to have fair hygiene and grooming. Behavior: Patient is seated without any agitated behavior. Focused on discharge, minimizing, improving mildly Speech: Patient's speech is fluent and nonpressured. Soft tone of voice Mood/Affect: Patient reports their mood is improving mildly, affect is congruent and tearful at times Suicidality/Homicidality: Patient denies having any homicidal ideation intent or plan. Denies any suicidal ideations intent or plan Perceptions: Patient denies any visual hallucinations and denies any auditory hallucinations Though content/process: There is no evidence of any delusional thought content and thought process is linear and goal-directed. Focused on discharge, minimizing, improving mildly, improving mildly Memory and concentration: AOX3, grossly intact for the purposes of this session Judgment and insight: Poor, improving mildly IMPRESSIONS: Depressive disorder unspecified Borderline personality disorder History of PTSD Cannabis use disorder Alcohol abuse Nicotine dependence PLAN: -Patient is admitted under voluntary status to MHU for stabilization of psychiatric symptoms and safety. Patient has signed adult voluntary form and has signed medication consent and is placed in patient's chart. -Medications : Seroquel 100 mg nightly for mood stabilization/insomnia, Lamictal 200 mg daily for mood stabilization/depression. Naltrexone 50 mg p.o. daily for alcohol cravings, Librium taper for alcohol withdrawal. Added Zoloft 50 mg daily for mood/anxiety. -Ativan and Haldol PRN for agitation/aggression. Vistaril as needed for anxiety. -thiamine, MVM for etoh use -CIWA protocol with Ativan PRN for ETOH withdrawal. -NRT -nicotine patch -SW on board for discharge planning. Encourage patient to participate in groups to work on coping skills. hopeful for discharge wednesday if patient is improving. will offer rehab
[2024-08-27] MEDS: hydrOXYzine pamoate 25 MG CAP PO PRN (14:14)
[2024-08-27] MEDS: SERTRALINE 50 MG TAB PO SCH (14:20)
--- NOTE | 2024-08-28 04:19 | P.MDCNMH ---
History of Present Illness H&P Date: 08/26/24 29-year-old female who was brought in here for mental health evaluation Patient denies any medical concerns at this time , denies any fever, chills, cough, sore throat, chest pain , trouble breathing , nausea , vomiting, abd pain , changes in urinary or bowel habits. review of systems Pertinent positives as noted in HPI. All other systems were reviewed and are negative on exam Constitutional: No acute distress, conversant, pleasant Eyes: Anicteric sclerae, moist conjunctiva, Pupils equal round reactive to light ENMT: NC/AT Oropharynx clear, no erythema, or exudates Lungs: Clear to auscultation Clear to percussion Normal respiratory effort, no accessory muscle use Cardiovascular: Heart regular in rate and rhythm, No murmurs, gallops, or rubs No peripheral edema Abdominal: Soft Nontender, no guarding, rebound or rigidity Abdomen moving with respiration Normoactive bowel sounds Extremities: No digital cyanosis Pedal pulses intact and symmetrical Radial pulses intact and symmetrical No calf tenderness Psychiatric: Alert and oriented to person, place and time Neuro Muscles Strength 5/5 in all 4 extremities Assessment and plan Depression suicidal ideation Management per psych Polysubstance abuse Urine drug screen positive for meth and marijuana Patient counseled regarding drug of abuse Stable from medical standpoint Labs reviewed white count 7 hemoglobin 13.7 both unremarkable Renal function unremarkable sodium 138 potassium 4.2 BUN 18 creatinine 0.9 Past Medical History Past Medical History: No Reported History Additional Past Medical History / Comment(s): First was a vaginal delivery. This is her second and she started care with Dr. Obregon and then switched to Dr. Griggs. Blood type is B+, and because negative, rubella immune, Pap is B-, GBS positive, RPR nonreactive. History of Any Multi-Drug Resistant Organisms: None Reported Past Surgical History: No Surgical Hx Reported Past Anesthesia/Blood Transfusion Reactions: No Reported Reaction Past Psychological History: Anxiety, Depression Smoking Status: Vaper Past Alcohol Use History: Daily Past Drug Use History: Marijuana - Past Family History Father Family Medical History: No Reported History Medications and Allergies Home Medications Medication Instructions Recorded Confirmed Type QUEtiapine [SEROquel] 100 - 200 mg PO HS 08/24/24 08/24/24 History lamoTRIgine 200 mg PO DAILY 08/24/24 08/24/24 History Allergies Allergy/AdvReac Type Severity Reaction Status Date / Time No Known Allergies Allergy Verified 08/24/24 14:29 Physical Exam Vitals: Vital Signs Temp Pulse Resp BP Pulse Ox 08/27/24 21:00 97.4 F L 97 18 107/49 99 08/27/24 09:00 97.1 F L 122 H 16 104/70 98 Intake and Output 08/27/24 08/27/24 08/28/24 14:59 22:59 06:59 Other: Weight 57.7 kg Cranial Nerve Examination - Cranial Nerves Cranial Nerve II- Optic: Intact Cranial Nerve III- Oculomotor: Intact Cranial Nerve IV- Trochlear: Intact Cranial Nerve V- Trigeminal: Intact Cranial Nerve - Abducens: Intact Cranial Nerve VII- Facial: Intact Cranial Nerve VIII- Auditory: Intact Cranial Nerve IX- Glossopharyngeal: Intact Cranial Nerve X- Vagus: Intact Cranial Nerve XI- Accessory: Intact Cranial Nerve XII- Hypoglossal: Intact Results CBC & Chem 7: 08/25/24 07:50 08/25/24 07:50
--- NOTE | 2024-08-28 09:31 | P.PN ---
Progress Note - Text Progress Note Date: 08/28/24 Interval History: The patient was seen wandering the hallways and was directable and agreeable to speak with fiction and nonfiction writer prose in the office. Speaking with the patient she notes that she would like the Zoloft discontinued. She notes that she had been on it in the past and had side effects. She notes that she feels confined here which exacerbates her symptoms and rates her depression and anxiety 4/10 with 10 being worst. She notes that she slept 9 hours. She states that her energy, appetite and concentration is normal. She notes that she is going to groups. She denies overall cravings for alcohol. When discussing alcohol the patient is very ambiguous about treatment but then realizes that her suicide attempt was mainly based because of alcohol use. On discharge she notes that she is going back to her boyfriend the either try to settle things out or stay with friends but describes the environment as "toxic". Safety plans were discussed including 911 and 988. At this time the patient denies any suicidal or homical ideations, intent or plan. The patient denies any auditory, visual hallucinations and denies any paranoia or delusions. The patient denies any side effects from the medications and has been compliant with meds. Mental Status Exam: General Appearance: Patient appears to be stated age is alert, directable, and cooperative. Behavior: Patient is calmly seated without any agitated behavior. Speech: Patient's speech is fluent and nonpressured. Mood/Affect: Mood is improving mildly, affect is congruent and constricted. Suicidality/Homicidality: Patient denies having any suicidal or homicidal ideation intent or plan. Perceptions: Patient denies any visual hallucinations and denies any auditory hallucinations Though content/process: There is no evidence of any delusional thought content and thought process is linear and goal-directed. Memory and concentration: AOX3, grossly intact for the purposes of this session Judgment and insight: Improving mildly Diagnosis: Depressive disorder unspecified Borderline personality disorder History of PTSD Cannabis use disorder Alcohol abuse Nicotine dependence Assessment: The patient is strongly opposed to taking Zoloft. She notes that it did not make her feel good and cause problems. Additionally, she notes that the alcohol is related to the suicide attempt she is somewhat ambiguous about help at this point concerning the ETOH. It is noted in the chart that she did receive Librium today for withdrawal she was having tremors. Additionally, there is no solid plan for where she is going to stay upon discharge outside of some friends allowing her to crash on the couch. At this time continue hospitalization until a clear discharge plan is set up. PLAN: -Patient is admitted under voluntary status to MHU for stabilization of psychiatric symptoms and safety. Patient has signed adult voluntary form and has signed medication consent and is placed in patient's chart. -Medications : Continiuing Seroquel 100 mg nightly for mood stabilization/insomnia Lamictal 200 mg daily for mood stabilization/depression Naltrexone 50 mg p.o. daily for alcohol cravings, Librium Discontinue Zoloft 50 mg daily for mood/anxiety. -Ativan and Haldol PRN for agitation/aggression. Vistaril as needed for anxiety. -thiamine, MVM for etoh use -CIWA protocol with Ativan PRN for ETOH withdrawal. -NRT -nicotine patch -SW on board for discharge planning. Encourage patient to participate in groups to work on coping skills. hopeful for discharge wednesday if patient is improving. will offer rehab
[2024-08-28 10:42] VITALS: RESP 16
[2024-08-28] MEDS: haloperidoL 5 MG TAB PO PRN (16:46)
[2024-08-28 20:02] VITALS: PULSE 112
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
[2024-08-29 08:34] VITALS: BP 105/73; TEMP 97.6
== END 2024-08-29 10:31 | disposition home or self-care (01) | DRG 751 ==
LOC: EC 12:27 → 3MHU 16:21
PROVIDERS: ADMIT Psychiatry & Neurology Psychiatry; ATTEND Psychiatry & Neurology Psychiatry
DX: F32.A Depression, unspecified (principal); R45.851 Suicidal ideations; F41.9 Anxiety disorder, unspecified; F60.3 Borderline personality disorder; F43.10 Post-traumatic stress disorder, unspecified; F12.10 Cannabis abuse, uncomplicated; F10.10 Alcohol abuse, uncomplicated; F17.200 Nicotine dependence, unspecified, uncomplicated; F19.10 Other psychoactive substance abuse, uncomplicated; K64.9 Unspecified hemorrhoids; G47.00 Insomnia, unspecified; Z79.899 Other long term (current) drug therapy
CPT/HCPCS: 80053; 80061; 80306; 81001; 81025; 82075; 83036; 84443; 85025; 87635; 93005; 99285